=== PATIENT | female | born 1980 | race Caucasian/White ===

== ENCOUNTER 2021-11-08 15:47 | Emergency (ER) | payer SELFPAY ==
[2021-11-08 16:19] VITALS: BP 122/87; PULSE 91; RESP 14; TEMP 37.4; O2SAT 99
--- NOTE | 2021-11-08 16:35 | PC.NURSE ---
Patient states she is a difficult stick for blood draw and usually needs the ultrasound for lab draw. Unsuccessful at this time.
--- NOTE | 2021-11-08 17:43 | PC.NURSE ---
Patient's name called multiple times in triage to be taken to room, no response.
--- NOTE | 2021-11-08 18:14 | PC.NURSE ---
Pt called to be place din treatment room at this time with no response. RN searched waiting room and outside, pt not here.
--- NOTE | 2021-11-08 18:47 | PC.NURSE ---
Pt called again for a room, no response. Pt not in waiting room or outside.
--- NOTE | 2021-11-08 18:58 | PC.NURSE ---
No answer x 3. 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
== END 2021-11-08 19:14 | disposition left against medical advice (07) ==
LOC: ANHED 19:12
DX: R10.31 Right lower quadrant pain (principal)
CPT/HCPCS: 99199